=== PATIENT | female | born 1970 | race Two or more races ===

== ENCOUNTER 2018-12-13 09:51 | Emergency (ER) | payer SELFPAY ==
[~2018-12-13] VITALS: Ht 165.1 cm; Wt 94.3 kg
[2018-12-13 10:00] VITALS: BP 140/82
--- NOTE | 2018-12-13 10:00 | NUR ---
ED Nurse Note: Pt presented to Ed from home, pt fell this morning hitting her head resulting in small laceration to left eyebrow. PT is A&ox4, denies losing consciousness. 6/10 Headache pain. VSS
--- NOTE | 2018-12-13 10:07 | NUR ---
ED Nurse Note: Pt off the floor to CT
--- NOTE | 2018-12-13 10:17 | NUR ---
ED Nurse Note: Pt back to ED from CT
--- NOTE | 2018-12-13 10:52 | Diagnostic Imaging Report ---
Indication: Head trauma headache Technique: Contiguous 5 mm thick transaxial imaging of the head obtained in a Siemens Sensation [address] scanner. Soft tissue and bone windows generated. Automatic Exposure Control was utilized. Total Dose length Product (DLP): 1899.[address] Dose Index Volume (CTDIvol): 70.38,28.19 mGy Comparison: none Findings: There is mild prominence of the ventricles, basal cisterns, and cerebral sulci consistent with atrophy. Mild, nonspecific, white matter hypoattenuation is noted throughout the brain consistent with chronic small vessel disease. There is no midline shift, edema, acute hemorrhage, mass effect, or abnormal extra-axial fluid collections. Bones and extra osseous soft tissues are unremarkable. Impression: No acute intracranial bleed, mass effect or edema. Mild atrophy of the brain. Nonspecific white matter hypoattenuation probably due to chronic small vessel disease. The CT scanner at [facility] is accredited by the [employer] and the scans are performed using dose optimization techniques as appropriate to a performed exam including Automatic Exposure control.
--- NOTE | 2018-12-13 10:57 | Diagnostic Imaging Report ---
Indication: Trauma and facial pain Technique: Continuous helical transaxial imaging of the maxillofacial structures obtained without intravenous contrast administration. Coronal 2-D reformats were also obtained. Study obtained in a Siemens sensation [address] Automatic Exposure Control was utilized. Total Dose length Product (DLP): 1899.[address] Dose Index Volume (CTDIvol): 70.38,28.19 mGy Comparison: None Findings: There is no evidence of an acute fracture. Paranasal sinuses and mastoids are clear. Soft tissues are unremarkable. There is ligamentous calcification adjacent to the dens. IMPRESSION: No acute fracture identified The CT scanner at [facility] is accredited by the [employer] and the scans are performed using dose optimization techniques as appropriate to a performed exam including Automatic Exposure control.
--- NOTE | 2018-12-13 11:15 | Emergency Room Report ---
History of Present Illness General Chief Complaint: Laceration Source: Patient Present Illness HPI This patient states that she was on an uneven path and tripped and fell and hit her left forehead. She has a small laceration here. She does feel lightheaded. She denies neck pain. She has had some blurry vision. She denies nausea or vomiting. She denies chest pain or shortness of breath. She states she had no symptoms prior to the episode that all of the symptoms occurred after she had her head on the ground. She has no musculoskeletal pain. She has no other complaints. Allergies: Coded Allergies: No Known Allergies (Unverified , 12/13/18) Patient History Past Medical History: none, see triage record Social History: Denies: smoking, alcohol use, drug use Last Menstrual Period: 12/11/18 Now: No Reviewed Nursing Documentation: PMH: Agreed; PSxH: Agreed Nursing Documentation-PMH Past Medical History: No Stated History Review of Systems All Other Systems: negative except mentioned in HPI Physical Exam Vital Signs Date Time Temp Pulse Resp B/P (MAP) Pulse Ox O2 Delivery O2 Flow Rate FiO2 12/13/18 09:54 97.9 84 20 95 Room Air 12/13/18 10:00 140/82 Sp02 EP Interpretation: reviewed, normal General Appearance: no apparent distress, alert, GCS 15, non-toxic Head: normocephalic, other Eyes: bilateral eye normal inspection, bilateral eye PERRL ENT: hearing grossly normal, normal pharynx, no angioedema, normal voice Neck: full range of motion, supple/symm/no masses Respiratory: chest non-tender, lungs clear, normal breath sounds, speaking full sentences Cardiovascular #1: regular rate, rhythm, no edema Cardiovascular #2: 2+ carotid (R), 2+ carotid (L), 2+ radial (R), 2+ radial (L) , 2+ dorsalis pedis (R), 2+ dorsalis pedis (L) Gastrointestinal: normal bowel sounds, non tender, soft, non-distended, no guarding, no rebound Rectal: deferred Genitourinary: normal inspection, no CVA tenderness Musculoskeletal: back normal, gait/station normal, normal range of motion, non- tender, calf tenderness Neurologic: alert, oriented x3, responsive, motor strength/tone normal, sensory intact, speech normal Psychiatric: judgement/insight normal, memory normal, mood/affect normal, no suicidal/homicidal ideation Reflexes: 3+ bicep (R), 3+ bicep (L), 3+ tricep (R), 3+ tricep (L), 3+ knee (R) , 3+ knee (L) Skin: normal color, no rash, warm/dry, well hydrated Lymphatic: no adenopathy Procedures Laceration/Wound Repair Laceration/Wound Repair : Consent: Verbal Wound Location: face Wound's Depth, Shape: superficial Wound Length (cm): 1 Wound Explored: clean Irrigated w/ Saline (ccs): 200 Wound Repaired With: Dermabond Patient Tolerated: Well Complications: None Medical Decision Making Diagnostic Impression: Primary Impression: Laceration Additional Impression: Closed head injury ER Course This patient had a small well approximated laceration over her left eyebrow. This was easily and well approximated with Dermabond. The patient did have some symptoms after the head injury. Therefore, I did obtain a CT of the head and facial bones. There was no acute findings. See official report in electronic medical record. Overall, the patient's evaluation is benign. The patient is given close return precautions and follow-up instructions. CT/MRI/US Diagnostic Results CT/MRI/US Diagnostic Results : Imaging Test Ordered: CT head, CT facial bones Impression No acute findings. Specifically no intracranial bleed, mass effect or edema. See official report. CT facial bones: No acute fracture. Last Vital Signs Date Time Temp Pulse Resp B/P (MAP) Pulse Ox O2 Delivery O2 Flow Rate FiO2 12/13/18 10:00 85 18 140/82 95 Room Air 12/13/18 09:54 97.9 Status: improved Disposition: HOME, SELF-CARE Condition: Improved Patient Instructions: Laceration Care, Adult Teresa Kelley DO December 13, 2018 11:15
--- NOTE | 2018-12-13 11:35 | NUR ---
ED Nurse Note: Pt reports decreased pain 2/10. Dr Cohn used dermabond to seal linear lac. Pt tolerated well. Clean and dry left open to air.
--- NOTE | 2018-12-13 11:40 | NUR ---
ER DISCHARGE NOTE: Patient is cleared to be discharged per ERMD, pt is aox4, on room air, with stable vital signs. pt was given dc and prescription instructions, pt was able to verbalize understanding, pt id band removed. pt is able to ambulate with steady gait. pt took all belongings.
[2018-12-13] MEDS ORDERED: ACETAMINOPHEN-1 EAC1 ORAL (11:52)
== END 2018-12-13 11:40 | disposition home or self-care (01) ==
LOC: EMR 10:30
DX: S01.112A Laceration without foreign body of left eyelid and periocular area, initial encounter (principal); S09.90XA Unspecified injury of head, initial encounter; W01.0XXA Fall on same level from slipping, tripping and stumbling without subsequent striking against object, initial encounter; Y92.9 Unspecified place or not applicable; R42 Dizziness and giddiness; G31.9 Degenerative disease of nervous system, unspecified
CPT/HCPCS: 70450; 70486; 99284